=== PATIENT | female | born 1985 | race Caucasian/White ===

== ENCOUNTER 2016-12-16 21:57 | Emergency (ER) | payer OTHER ==
--- NOTE | 2016-12-16 22:32 | EDM.PDOC ---
ED HPI GENERAL MEDICAL PROBLEM - General Chief Complaint: Chest Pain Stated Complaint: Palpitations, chest heaviness Time Seen by Provider: 12/16/16 22:05 Source of Information: Reports: Patient, Family, RN, RN Notes Reviewed History Limitations: Reports: No Limitations - History of Present Illness INITIAL COMMENTS - FREE TEXT/NARRATIVE: Patient presents to the ED at [facility] with complaints of chest heaviness and palpitations. Patient states the chest heaviness started about one week ago. No known trigger. Patient felt it was due to seasonal allergies. No overt SOB. Patient states while she was walking up a flight of stairs this evening, she felt her "heart start racing." Patient states her chest "felt heavy" at that time. Patient denies any N/V/D. Patient denies any numbness, tingling, or paresthesia. No back pain. No recent falls. No trouble with ambulation. Patient states a couple of years ago she had a similar episode. Patient states she was diagnosed with a panic attack at that time. Onset: Today, Sudden Duration: Resolved Prior to Arrival chest heaviness Pain Score (Numeric/FACES): 2 - Related Data Allergies Allergy/AdvReac Type Severity Reaction Status Date / Time No Known Allergies Allergy Verified 12/16/16 22:36 Home Meds: Home Meds Cetirizine HCl [Zyrtec] 10 mg PO DAILY 12/16/16 [History] ED ROS GENERAL - Review of Systems Review Of Systems: See Below Constitutional: Denies: Fever, Chills, Weakness Respiratory: Denies: Shortness of Breath, Cough Cardiovascular: Reports: Chest Pain, Palpitations. Denies: Dyspnea on Exertion , Lightheadedness GI/Abdominal: Denies: Abdominal Pain, Nausea, Vomiting Skin: Reports: No Symptoms Neurological: Reports: No Symptoms ED EXAM, GENERAL - Physical Exam Exam: See Below Exam Limited By: No Limitations General Appearance: Alert, No Apparent Distress Respiratory/Chest: No Respiratory Distress, Lungs Clear, Normal Breath Sounds Cardiovascular: Normal Peripheral Pulses, Regular Rate, Rhythm, No Edema Peripheral Pulses: 2+: Radial (L), Radial (R) GI/Abdominal: Normal Bowel Sounds, Soft, Non-Tender Neurological: Alert, Oriented Skin Exam: Warm, Dry, Intact, Normal Color, No Rash Course - Vital Signs Last Recorded V/S: Last Vital Signs Temp 36.6 C 12/16/16 21:58 Pulse 78 12/16/16 21:58 Resp 12 12/16/16 21:58 BP 128/79 12/16/16 21:58 Pulse Ox 97 12/16/16 21:58 - Orders/Labs/Meds Orders: Active Orders 24 hr Category Date Time Status Chest 1V Frontal [CR] Stat Exams 12/16/16 22:31 Taken Labs: Laboratory Tests 12/16/16 12/16/16 Range/Units 22:45 22:45 WBC 8.8 (4.0-10.0) x10^3/uL RBC 3.78 L (4.00-5.50) x10^6/uL Hgb 11.3 L (12.0-16.0) g/dL Hct 35.3 (33.0-47.0) % MCV 93.4 H (78.0-93.0) fL MCH 29.9 (26.0-32.0) pg MCHC 32.0 (32.0-36.0) g/dL RDW Coeff of Leonard 14.2 (10.0-15.0) % Plt Count 220 (130-400) x10^3/uL Neut % (Auto) 62.2 (50.0-80.0) % Lymph % (Auto) 23.3 L (25.0-50.0) % [place] % (Auto) 8.3 (2.0-11.0) % Eos % (Auto) 5.9 H (0.0-4.0) % Baso % (Auto) 0.3 (0.2-1.2) % Sodium 143 (136-145) mmol/L Potassium 3.8 (3.5-5.1) mmol/L Chloride 106 (98-107) mmol/L Carbon Dioxide 30 (21-32) mmol/L BUN 15 (7-18) mg/dL Creatinine 0.9 (0.55-1.02) mg/dL Est Cr Clr Drug Dosing TNP Estimated GFR (MDRD) > 60 Glucose 109 H (74-106) mg/dL Calcium 8.4 L (8.5-10.1) mg/dL Corrected Calcium 9.12 (8.5-10.1) mg/dL Phosphorus 2.8 (2.6-4.7) mg/dL Magnesium 2.0 (1.8-2.4) mg/dL Total Bilirubin 0.3 (0.2-1.0) mg/dL AST 11 L (15-37) U/L ALT 20 (14-59) U/L Alkaline Phosphatase 93 (46-116) U/L Creatine Kinase 50 (26-192) U/L Creatine Kinase Index TNP CK-MB (CK-2) TNP Troponin I < 0.017 (<=0.056) ng/mL Total Protein 6.9 (6.4-8.2) g/dL Albumin 3.1 L (3.4-5.0) g/dL Globulin 3.8 Albumin/Globulin Ratio 0.82 - Radiology Interpretation Free Text/Narrative:: Portable CXR: Normal chest x-ray; see scanned report in EMR Departure - Departure Time of Disposition: 23:29 Disposition: Home, Self-Care 01 Condition: Good Clinical Impression: Palpitation Instructions: Nonspecific Chest Pain, [id number], Palpitations Referrals: PCP,Not In Area [Primary Care Provider] - Forms: ED Department Discharge Additional Instructions: 1. Stay well hydrated and rest 2. Monitor your heart rate at times; if palpitations continues return for further evaluation 3. Recommend seeing your Primary for possible additional testing - Problem List Review Problem List Initiated/Reviewed/Updated: Yes - My Orders Last 24 Hours: My Active Orders 12/16/16 22:31 Chest 1V Frontal [CR] Stat - Assessment/Plan Last 24 Hours: My Active Orders 12/16/16 22:31 Chest 1V Frontal [CR] Stat
[2016-12-16 23:25] LABS: CHLORIDE,CL 106 mmol/L (98-107); SODIUM,NA 143 mmol/L (136-145)
== END 2016-12-16 23:35 | disposition home or self-care (01) ==
LOC: VM.ED 21:57
DX: R00.2 Palpitations (principal); Z79.899 Other long term (current) drug therapy
CPT/HCPCS: 36415; 71010; 80053; 82550; 83735; 84100; 84484; 85025; 93005; 99285